=== PATIENT | female | born 1990 | race Caucasian/White ===

== ENCOUNTER 2018-01-14 06:00 | Inpatient (IN) | payer OTHER ==
[2018-01-14] MEDS ORDERED: LR 1,000 ML IV PRN (06:50)
[2018-01-14] MEDS ORDERED: IBUPROFEN 600 MG TAB PO PRN (06:50)
[2018-01-14] MEDS ORDERED: OXYTOCIN/RINGERS LACTATE 1,000 ML IV PRN (06:50)
[2018-01-14] MEDS ORDERED: MISOPROSTOL 200 MCG TAB PR PRN (06:50)
[2018-01-14] MEDS ORDERED: TERBUTALINE SULFATE 1 MG/ML VIAL IV PRN (06:50)
[2018-01-14] MEDS ORDERED: AMPICILLIN SODIUM 2 GM in NS 100 ML IV ONE (06:50)
[2018-01-14] MEDS ORDERED: EPSOM SALT 454 GM TP PRN (06:50)
[2018-01-14] MEDS ORDERED: LIDOCAINE 1% 300 MG/30 ML SDV SC PRN (06:50)
[2018-01-14] MEDS ORDERED: OLIVE OIL 118 ML BTL MISC PRN (06:50)
[2018-01-14] MEDS ORDERED: LIDOCAINE 1% 300 MG/30 ML SDV ONE (07:03)
[2018-01-14] MEDS ORDERED: TERBUTALINE SULFATE 1 MG/ML VIAL ONE (07:03)
[2018-01-14] MEDS ORDERED: AMMONIA AROMATIC 1 EACH AMP IH ONE (07:03)
[2018-01-14] MEDS ORDERED: MISOPROSTOL 200 MCG TAB ONE (07:03)
[2018-01-14] MEDS ORDERED: OLIVE OIL 118 ML BTL ONE (07:03)
[2018-01-14 07:09] LABS: PLATELET COUNT 171 10^3/uL (150-400)
--- NOTE | 2018-01-14 08:16 | PDGENHP ---
History and Physical History and Physical: CARE: [facility] [place] [facility] HPI: Patient is a 27 yo G 1 P 0 who presents to L&D for IOL for postdates - 41.1 weeks ega. Landeros bulb was place in the clinic yesterday afternoon. Sherin reports that contractions intensified at home around 0200 and have become progressively more uncomfortable since then-are currently 2-4 minutes apart. The landeros bulb came out when she tugged on it around 0700. Baby is active and she denies LOF. She is having some light bloody show. Requesting nitrous for pain relief. EDC: 01/06/2018 which is based on LMP: 04/01/2017 which is known and consistent with Ultrasound at 8 weeks. Her is complicated by: - h/o marijuana use - quit with . UDS neg first trimester - GBS pos urine culture Review of Systems: Constitutional: Denies any fever, chills, or fatigue HEENT: denies any visual changes, difficulty swallowing, hearing loss Cardiovascular: Denies any chest pain, palpitations, leg swelling Respiratory: denies any cough, wheezing, or shortness of breathe GI: Denies any nausea, vomiting, diarrhea, constipation : denies any dysuria, urgency, frequency, vaginal bleeding Musculoskeletal: denies any muscle or bone pain Skin: denies any rashes Neuro: denies any headache, seizures, lightheadedness, dizziness, or loss of consciousness Psychiatric: denies any depression, anxiety, or SI/HI thoughts HISTORY: Previous OB history: none Past medical history: ovarian cyst 2017 - resolved Past surgical history: wisdom teeth Medications: PNV Allergies (list reaction): NKDA LABS: Rh: O pos ABS: neg Rubella: Immune HbsAg: NR HIV: NR VDRL: NR 1hr: 85 GC: Neg Chlamydia: Neg Pap: Normal 2017 GBS: pos GBS in urine BMI: (prepreg) 26 PHYSICAL EXAM: Constitutional: WN, A&Ox3 HEENT: normocephalic atraumatic, supple Heart: RRR, no murmur Chest: CTA-B Abdomen: Soft, nontender, gravid SVE: 4/70/-3 Extremities: sml pedal edema, negative noé's sign Neuro: grossly normal Psych: normal affect assessment: Reassuring FHTs, baseline 130s +accels, no decels, moderate variability Contractions: toco q 2-4 moderate Assessment: 1) 27 yo G 1 P 0 with IUP@ 41.1 weeks ega 2) Spontaneous labor after landeros bulb placement 3) GBS pos 4) Cat 1 FHR tracing Plan: 1) Admit to L&D 2) Intermittent monitoring per protocol 3) GBS prophylaxis - ampicillin 4) Pain management as patient desires 5) Anticipate
[2018-01-14] MEDS ORDERED: fentaNYL 100 MCG/2 ML INJ IVP ONE (09:57)
[2018-01-14] MEDS ORDERED: PHENYLEPHRINE HCL 100 MCG/ML SYR ONE (10:55)
[2018-01-14] MEDS ORDERED: BUPIVACAINE 0.25% 30 ML SDV ONE (10:55)
[2018-01-14] MEDS ORDERED: fentaNYL 100 MCG/2 ML INJ ONE (10:56)
[2018-01-14] MEDS: AMPICILLIN SODIUM 1 GM in NS 100 ML IV SCH ×2 (11:03→15:24)
[2018-01-14] MEDS ORDERED: ONDANSETRON 4 MG/2 ML VIAL IVP PRN (11:42)
[2018-01-14] MEDS ORDERED: PHENYLEPHRINE HCL 100 MCG/ML SYR IVP PRN (11:42)
--- NOTE | 2018-01-14 11:49 | PREANESOB ---
Obstetric Pre-Anesthesia Info - General Info Proposed Procedure: Labor and delivery. : 1 Para: 0 DIXON: 01/06/18 Gestational Age: 41 week(s) and 1 day(s) - Info Status: Postmature Monitors: External FHR Baseline (bpm): 135 FHR Pattern: Reassuring - Labor Status Cervical Dilation per last OB SVE: 5 Station per last OB SVE: -2 Indications for Labor Analgesia: Pain Control Labor Epidural: Proposed Anesthesia ROS: [place] teeth removed. Allergies/Adverse Reactions: Allergy/AdvReac Type Severity Reaction Status Date / Time No Known Allergies Allergy Unverified 01/14/18 06:49 Home Medications: Medication Instructions Recorded 01/14/18 Visit Medications: Generic Name Dose Route Start Last Admin Trade Name Freq PRN Reason Stop Dose Admin Diphenhydramine HCl 25 - 50 mg 01/14/18 11:42 Benadryl Injection IVP 07/13/18 11:41 Q6HRS PRN Itching Ampicillin Sodium 1 gm/ Sodium 100 mls @ 200 mls/hr 01/14/18 11:00 01/14/18 11:03 Chloride IV 02/13/18 10:59 100 mls Q4H RACHEL Administration Protocol Lactated Ringer's 1,000 mls @ 0 mls/hr 01/14/18 06:50 Lr IV 01/15/18 06:49 PRN PRN SEE PROTOCOL CONDITIONS Protocol Per Protocol Oxytocin/Lactated Ringer's 1,000 mls @ 125 mls/hr 01/14/18 06:50 Pitocin 20 Units/Lr (Premix) IV PRN PRN Post bleeding Fentanyl/Bupivacaine HCl 100 mls @ 0 mls/hr 01/14/18 12:00 Fentanyl/Bupivacaine/Ns 2 Mcg/Ml 0.1% (Premix EP 01/24/18 11:59 CONT RACHEL Protocol As Directed Lactated Ringer's 500 mls @ 0 mls/hr 01/14/18 12:00 Lr IV 07/13/18 11:59 CONT RACHEL As Directed Ibuprofen 600 mg 01/14/18 06:50 Motrin PO ONCE PRN post , pain Lidocaine HCl 300 mg 01/14/18 06:50 Lidocaine Hcl 1% SC 07/13/18 06:49 ONCE PRN episiotomy Magnesium Sulfate 454 gm 01/14/18 06:50 Epsom Salt TP 07/13/18 06:49 Q1H PRN perineal discomfort Misoprostol 800 - 1,000 mcg 01/14/18 06:50 Cytotec MS ONCE PRN Vaginal Atony/Bleeding Chelsea Oil 118 ml 01/14/18 06:50 Sweet Oil MISC 07/13/18 06:49 ONCE PRN perineal massage Ondansetron HCl 4 mg 01/14/18 11:42 Zofran IVP 01/15/18 11:41 Q4HRS PRN Nausea/Vomiting, Can't Take PO Phenylephrine HCl 100 mcg 01/14/18 11:42 Neosynephrine IVP 07/13/18 11:41 .Q2M PRN Hypotension Terbutaline Sulfate 0.25 mg 01/14/18 06:50 Brethine IV 07/13/18 06:49 ONCE PRN Tachysystole Discontinued Medications Generic Name Dose Route Start Last Admin Trade Name Freq PRN Reason Stop Dose Admin Ammonia (Aromatic Spirit) Confirm 01/14/18 07:03 Ammonia Aromatic Administered 01/14/18 07:04 Dose 1 each IH .STK-MED ONE Bupivacaine HCl Confirm 01/14/18 10:55 Sensorcaine 0.25% Sdv Administered 01/14/18 10:56 Dose 30 ml .ROUTE .STK-MED ONE Fentanyl 50 mcg 01/14/18 09:57 01/14/18 10:03 Sublimaze IVP 01/14/18 09:58 50 mcg ONCE ONE Administration Fentanyl Confirm 01/14/18 10:56 Sublimaze Administered 01/14/18 10:57 Dose 100 mcg .ROUTE .STK-MED ONE Ampicillin Sodium 2 gm/ Sodium 110 mls @ 220 mls/hr 01/14/18 06:50 01/14/18 07:16 Chloride IV 01/14/18 07:19 110 mls ONCE ONE Administration Protocol Lidocaine HCl Confirm 01/14/18 07:03 Lidocaine Hcl 1% Administered 01/14/18 07:04 Dose 300 mg .ROUTE .STK-MED ONE Misoprostol Confirm 01/14/18 07:03 Cytotec Administered 01/14/18 07:04 Dose 1,000 mcg .ROUTE .STK-MED ONE Chelsea Oil Confirm 01/14/18 07:03 Sweet Oil Administered 01/14/18 07:04 Dose 118 ml .ROUTE .STK-MED ONE Phenylephrine HCl Confirm 01/14/18 10:55 Neosynephrine Administered 01/14/18 10:56 Dose 1,000 mcg .ROUTE .STK-MED ONE Terbutaline Sulfate Confirm 01/14/18 07:03 Brethine Administered 01/14/18 07:04 Dose 1 mg .ROUTE .STK-MED ONE - Anesthesia History Response to Local Anesthetics: Normal Anesthesia & Operative History: No Prior Problems Family Anesthesia History: Negative - Social History Substance Use/Abuse: Denies - Vital Signs Blood Pressure: 124/78 Heart Rate: 82 Height/Weight (Nursing): Height 175 cm Weight 95.254 kg - Focused Exam Neck exam: FROM Mallampati Score: Class 1 Mouth exam: normal dental/mouth exam Pulmonary: no respiratory distress Cardiovascular: regular rate and rhythym Labs: 01/14/18 06:40 Patient ABO/Rh O POSITIVE 01/14/18 06:40 - Plan Anesthetic Plan: CSE Consent Signed and on Chart: Yes Patient/Guardian Understands and Agrees to Plan: Yes Urgent/Emergent Case: Taj rosen completed preop but documented later for safe timely pt care
--- NOTE | 2018-01-14 11:50 | POSTANESTH ---
Post Anesthetic Evaluation Cardiovascular Status: Normal, Stable, Similar to Pre-Op Cond Respiratory Status: Normal, Stable, Similar to Pre-op Cond. Level of Consciousness/Mental Status: Can Participate in Eval, Alert and Oriented Pain Control: Adequate, Prn Tx Ordered Nausea/Vomiting Control: Adequate, Prn Tx Ordered Complications Possibly Related to Anesthesia: None Noted
[2018-01-14] MEDS ORDERED: LR 500 ML IV SCH (12:00)
[2018-01-14] MEDS ORDERED: fentaNYL 200 MCG, BUPIVACAINE 0.5% 20 ML in NS 100 ML EP SCH (12:00)
[2018-01-14] MEDS ORDERED: fentaNYL 2MCG/ML/BUP 0.1% RTU 100 ML EP SCH (12:00)
[2018-01-14] MEDS ORDERED: OXYTOCIN/RINGERS LACTATE 500 ML IV SCH (13:00)
[2018-01-14] MEDS ORDERED: SILVER NITRATE APPLICATOR 1 APPL TP ONE ×2 (17:31→17:51)
--- NOTE | 2018-01-14 18:11 | OBDEL ---
Info Type: Vaginal Presentation at Delivery: Vertex L&D Analgesia/Anesthesia Type: Epidural GBS+: Yes Antibiotic Used for + GBS: Ampicillin Intrapartum Medications: Generic Name Dose Route Start Last Admin Trade Name Paloma PRN Reason Stop Dose Admin Ampicillin Sodium 1 gm/ Sodium 100 mls @ 200 mls/hr 01/14/18 11:00 01/14/18 15:24 Chloride IV 02/13/18 10:59 100 mls Q4H RACHEL Administration Protocol Fentanyl 200 mcg/ Bupivacaine 100 mls @ 0 mls/hr 01/14/18 12:00 01/14/18 12: 45 HCl 20 ml/ Sodium Chloride EP 01/24/18 11:59 100 mls CONT RACHEL Administration Protocol As Directed Oxytocin/Lactated Ringer's 500 mls @ 2 mls/hr 01/14/18 13:00 01/14/18 13:56 Pitocin 30 Units/Lr (Premix) IV 07/13/18 12:59 500 mls CONT RACHEL Administration Discontinued Medications Generic Name Dose Route Start Last Admin Trade Name Paloma PRN Reason Stop Dose Admin Fentanyl 50 mcg 01/14/18 09:57 01/14/18 10:03 Sublimaze IVP 01/14/18 09:58 50 mcg ONCE ONE Administration Ampicillin Sodium 2 gm/ Sodium 110 mls @ 220 mls/hr 01/14/18 06:50 01/14/18 07:16 Chloride IV 01/14/18 07:19 110 mls ONCE ONE Administration Protocol Indications for Delivery: Postterm Unfavorable Cervix Vaginal Delivery - Delivery Provider Delivery Physician/CNM: Jojo Cobian - Labor and Delivery Onset of Contractions Date: 01/14/18 Onset of Contractions Time: 02:00 Onset of Contractions Type: Induced (Labored after landeros bulb placed) Rupture of Membranes Date: 01/14/18 Rupture of Membranes Time: 13:09 Rupture of Membranes Type: Artificial Amniotic Fluid Color: Clear Dilation Complete Date: 01/14/18 Dilation Complete Time: 14:55 Placenta Delivery Date: 01/14/18 Placenta Delivery Time: 17:46 Total Hours of Labor: 15 Non-surgical Procedures: Amniotomy, IUPC (amnio infusion) Laceration: 2nd Degree (vaginal) Repair: 3-0, 4-0, Vicryl Vaginal Sponge Count Correct: Yes Vaginal Needle Count Correct: Yes Vaginal Sweep Performed: Yes EBL: 200 Delivery Comment: nuchal hand and cord wrapped around shoulder - Medications Labor Augmentation/Induction Methods Used: Pitocin, Landeros Bulb Labor Augmentation/Induction Indication: Contraction Strength Inadequate, Post Dates [place] Data DIXON: 01/06/18 Gestational Age: 41 week(s) and 1 day(s) ICD10 Worksheet Patient Problems: Problems Problem Status Onset Post-dates Acute Vaginal delivery Acute - ICD10 Problem Qualifiers (1) Post-dates (2) Vaginal delivery
[2018-01-14] MEDS ORDERED: HYDROCORTISONE 0.5% CREAM TP PRN (18:16)
[2018-01-14] MEDS ORDERED: HYDROCODONE/APAP 5/325 TAB PO PRN (18:16)
[2018-01-14] MEDS ORDERED: SIMETHICONE 80 MG TAB CHEW PO PRN (18:16)
[2018-01-15] MEDS: IBUPROFEN 600 MG TAB PO SCH ×5 (00:03→21:06)
[2018-01-15] MEDS: ACETAMINOPHEN 325 MG TAB PO SCH ×5 (00:11→21:05)
--- NOTE | 2018-01-15 10:40 | OBPP ---
Progress Note Assessment/Plan: Assessment: 1) s/p PPD # 1 - pt is stable Plan: Continue routine pp care Encourage ambulation Plan for d/c home in am 01/1601/15/18 10:36 Subjective/ Course: 01/15/18 10:37 Pt seen and examined. Doing well with no complaints. Mild cramping, relief with Motrin. She is OOB, eva regular diet, voiding without difficulty, and passing flatus. Mod lochia. Bf is going well so far-working with . Objective: 01/14/18 06:40 Patient ABO/Rh O POSITIVE 01/14/18 06:40 Temp Pulse Resp BP Pulse Ox 36.6 C 77 16 114/66 96 01/15/18 00:11 01/15/18 00:11 01/15/18 00:11 01/15/18 00:11 01/15/18 00:11 Uterine Position/Fundal Height: Umbilicus -1 Uterine Tone: Firm Physical Exam - Physical Exam General Appearance: WD/WN, alert, no apparent distress Respiratory: lungs clear, normal breath sounds Cardiac/Chest: regular rate, rhythm Abdomen: normal bowel sounds, non-tender, soft, flatus (+) Extremities: non-tender, normal inspection Skin: normal color, warm/dry Neuro/Psych: alert, normal mood/affect, oriented x 3
[2018-01-15] MEDS: DOCUSATE SODIUM 100 MG CAP PO PRN ×2 (12:14→21:06)
[2018-01-16] MEDS: ACETAMINOPHEN 325 MG TAB PO SCH ×3 (03:13→18:38)
[2018-01-16] MEDS: IBUPROFEN 600 MG TAB PO SCH ×3 (03:14→15:50)
[2018-01-16] MEDS: DOCUSATE SODIUM 100 MG CAP PO PRN (09:52)
[2018-01-16 10:11] VITALS: BP 108/73
--- NOTE | 2018-01-16 10:35 | OBGCSDC ---
General Delivery Information - General Info : 1 Para: 1 Abortions: 0 Type: Vaginal L&D Analgesia/Anesthesia Type: Epidural Admission Date: 01/14/18 Labs: Patient ABO/Rh O POSITIVE 01/14/18 06:40 Hct 37.8 % (38.0-47.0) L 01/14/18 06:40 - Hospital Course : 01/15/18 10:37 Pt seen and examined. Doing well with no complaints. Mild cramping, relief with Motrin. She is OOB, eva regular diet, voiding without difficulty, and passing flatus. Mod lochia. Bf is going well so far-working with . 01/16/18 10:32 S) Pt doing well, reports min pain and bleeding. she is ambulating and voiding without difficulty. She is . She desires discharge home today. O) VSS, afebrile constitutional: WNWF, A&Ox3 HEENT: normocephalic, atraumatic, supple Heart: RRR, No murmur Chest: CTA-B Abdomen: Soft, nontender Uterus: Firm at U-2 Lochia: Minimal rubra Perineum: Intact, healing well Extremities: Trace edema, and negative Reji's sign Neuro: Grossly normal A) 27-year-old S/P PPD#2 slightly flat nipples/baby not latching P) Discharge home today Continue , work with , use of nipple munoz PRN Pelvic rest x6wks Discussed danger signs (infection, preeclampsia, depression, heavy bleeding, etc ) RTO in 2/4/6 weeks Vaginal - Delivery Provider Delivery Physician/CNM: Jojo Cobian - Diagnosis Labor: Induced (Labored after landeros bulb placed) Rupture of Membranes Type: Artificial Amniotic Fluid Color: Clear Laceration: 2nd Degree (vaginal) Repair: 3-0, 4-0, Vicryl - Procedures Non-surgical Procedures: Amniotomy, IUPC (amnio infusion) - Delivery Non-surgical Procedures: Amniotomy, IUPC (amnio infusion) EBL: 200 Data DIXON: 01/06/18 Gestational Age: 41 week(s) and 3 day(s) Siddiqui Delivery Date: 01/14/18 Delivery Time: 16:37 Sex of : Female [place] Weight (gm): 2920 g Score (1 Min): 8 Score (5 Min): 9
== END 2018-01-16 19:30 | disposition home or self-care (01) | DRG 775 ==
LOC: FLD 06:21 → FOB 20:46
PROVIDERS: ADMIT Obstetrics & Gynecology; ATTEND Obstetrics & Gynecology
PROC: 3E03329 Introduction of Other Anti-infective into Peripheral Vein, Percutaneous Approach (ICD-10-PCS; principal; 2018-01-14)
PROC: 10E0XZZ Delivery of Products of Conception, External Approach (ICD-10-PCS; principal; 2018-01-14)
PROC: 10H07YZ Insertion of Other Device into Products of Conception, Via Natural or Artificial Opening (ICD-10-PCS; principal; 2018-01-14)
PROC: 0KQM0ZZ Repair Perineum Muscle, Open Approach (ICD-10-PCS; principal; 2018-01-14)
PROC: 10907ZC Drainage of Amniotic Fluid, Therapeutic from Products of Conception, Via Natural or Artificial Opening (ICD-10-PCS; principal; 2018-01-14)
PROC: 3E0E3GC Introduction of Other Therapeutic Substance into Products of Conception, Percutaneous Approach (ICD-10-PCS; principal; 2018-01-14)
PROC: 0HQ9XZZ Repair Perineum Skin, External Approach (ICD-10-PCS; principal; 2018-01-14)
DX: O48.0 Post-term pregnancy (principal); O34.43 Maternal care for other abnormalities of cervix, third trimester; O62.0 Primary inadequate contractions; O99.824 Streptococcus B carrier state complicating childbirth; O69.82X0 Labor and delivery complicated by other cord entanglement, without compression, not applicable or unspecified; O70.1 Second degree perineal laceration during delivery; O70.0 First degree perineal laceration during delivery; Z37.0 Single live birth; Z3A.41 41 weeks gestation of pregnancy
CPT/HCPCS: J0290; J2370; J2590; J3010; J3105